=== PATIENT | female | born 1975 | race Caucasian/White ===

== ENCOUNTER 2021-01-28 21:05 | Emergency (ER) | payer MEDICAID, OTHER ==
[2021-01-28] MEDS ORDERED: hydrOXYzine HCl 25 MG Tab PO ONE (21:06)
[2021-01-28] MEDS ORDERED: LORazepam 2 MG/ML SDV IM ONE (21:16)
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
[2021-01-28] MEDS ORDERED: LORazepam 0.5 MG Tab PO ONE (21:40)
[2021-01-28 21:57] LABS: ANION GAP 15.7 mEq/L (7-13); CHLORIDE,CL 99 mmol/L (98-107); SODIUM,NA 138 mmol/L (136-145)
[2021-01-28] MEDS ORDERED: hydrOXYzine HCl 25 MG Tab ONE (23:42)
== END 2021-01-28 23:54 | disposition home or self-care (01) ==
LOC: DL.ED 21:05
DX: F41.0 Panic disorder [episodic paroxysmal anxiety] (principal); E78.00 Pure hypercholesterolemia, unspecified; I10 Essential (primary) hypertension; Z86.73 Personal history of transient ischemic attack (TIA), and cerebral infarction without residual deficits; E11.9 Type 2 diabetes mellitus without complications; Z79.82 Long term (current) use of aspirin; Z79.84 Long term (current) use of oral hypoglycemic drugs; Z79.899 Other long term (current) drug therapy
CPT/HCPCS: 36415; 80053; 80305; 80307; 85025; 96372; 99283; A9270; J2060

== ENCOUNTER 2021-12-19 00:20 | Emergency (ER) | payer MEDICAID ==
[2021-12-19] MEDS ORDERED: Acetaminophen/HYDROcodone 325-10 MG Tab PO ONE (01:15)
== END 2021-12-19 01:32 | disposition home or self-care (01) ==
LOC: DL.ED 00:20
DX: R52 Pain, unspecified (principal); E78.00 Pure hypercholesterolemia, unspecified; I10 Essential (primary) hypertension; E11.9 Type 2 diabetes mellitus without complications; Z86.73 Personal history of transient ischemic attack (TIA), and cerebral infarction without residual deficits; Z79.82 Long term (current) use of aspirin; Z79.84 Long term (current) use of oral hypoglycemic drugs; Z79.899 Other long term (current) drug therapy; Z72.0 Tobacco use
CPT/HCPCS: 99283; A9270